=== PATIENT | male | born 1990 | race Caucasian/White ===

== ENCOUNTER 2023-12-08 01:02 | Emergency (ER) | payer OTHER ==
[~2023-12-08] VITALS: Ht 185.4 cm; Wt 108.9 kg
[2023-12-08 01:13] VITALS: BP_SYST 154; PULSE 100; RESP 16; TEMP 97.9; O2SAT 97
[2023-12-08] MEDS: DIPHTH,PERTUSS(ACELL),TET VAC 0.5 ML VIAL (Tdap) I.M. ONE (02:23)
[2023-12-08 02:36] VITALS: BP_SYST 145; PULSE 98; RESP 18; TEMP 98; O2SAT 97
== END 2023-12-08 02:36 | disposition home or self-care (01) ==
LOC: SED 01:02
DX: S61.213A Laceration without foreign body of left middle finger without damage to nail, initial encounter (principal); Z23 Encounter for immunization; W26.0XXA Contact with knife, initial encounter; Y93.89 Activity, other specified; Y92.89 Other specified places as the place of occurrence of the external cause; Y99.8 Other external cause status
CPT/HCPCS: 90715; 99283